=== PATIENT | male | born 1975 | race Caucasian/White ===

== ENCOUNTER 2023-09-25 15:05 | Emergency (ER) | payer MEDICAID, MEDICARE ==
[~2023-09-25] VITALS: Ht 170.2 cm; Wt 98.5 kg
[~2023-09-25 15:05] MED LIST: FLO0.4C PO; LORA1TAB PO; NORCO10T PO; ONDA4TAB6 PO; PANT-47 PO; PROM25TA14 PO; TEG100T PO; ZIPR80CA2 PO
[2023-09-25] MEDS ORDERED: DOXY-457 PO (16:35)
[2023-09-25 16:58] VITALS: BP 143/95; PULSE 79; RESP 16; TEMP 98.2; O2SAT 97
== END 2023-09-25 16:59 | disposition home or self-care (01) ==
LOC: ER 15:05
DX: K11.8 Other diseases of salivary glands (principal); I10 Essential (primary) hypertension; J45.909 Unspecified asthma, uncomplicated; F31.9 Bipolar disorder, unspecified; F12.90 Cannabis use, unspecified, uncomplicated; F15.90 Other stimulant use, unspecified, uncomplicated; Z88.5 Allergy status to narcotic agent; Z79.899 Other long term (current) drug therapy; Z79.2 Long term (current) use of antibiotics
CPT/HCPCS: 99283

== ENCOUNTER 2023-10-08 14:35 | Emergency (ER) | payer OTHER, MEDICAID ==
[~2023-10-08] VITALS: Ht 172.7 cm; Wt 99.0 kg
[2023-10-08 14:51] VITALS: BP 157/88; PULSE 76; TEMP 97.8; O2SAT 97
[2023-10-08] MEDS ORDERED: ketorolac trometh inj. 60 MG/2 ML VIAL IM ONE (16:45)
[2023-10-08] MEDS ORDERED: METH-798 PO (16:58)
[2023-10-08] MEDS ORDERED: IBUP-1985 PO (16:58)
[2023-10-08 17:15] VITALS: RESP 17
[2023-10-08] MEDS: ketorolac tromethamine 15mg/ml inj. IM ONE (17:15)
== END 2023-10-08 17:29 | disposition home or self-care (01) ==
LOC: ER 14:36
DX: M54.59 Other low back pain (principal); V98.8XXA Other specified transport accidents, initial encounter; Y93.89 Activity, other specified; Y92.89 Other specified places as the place of occurrence of the external cause; Y99.8 Other external cause status
CPT/HCPCS: 72100; 96372; 99283; J1885

== ENCOUNTER 2023-11-28 17:46 | Emergency (ER) | payer MEDICAID ==
[~2023-11-28] VITALS: Ht 177.8 cm; Wt 85.4 kg
[~2023-11-28 17:46] MED LIST changes: +IBUP-1985 PO; +METH-798 PO
[2023-11-28 17:47] VITALS: BP 163/100; PULSE 79; O2SAT 97
[2023-11-28] MEDS ORDERED: MELO-100 PO (18:32)
[2023-11-28 18:45] VITALS: RESP 17; TEMP 98.5
== END 2023-11-28 18:47 | disposition home or self-care (01) ==
LOC: ER 17:47
DX: S93.401A Sprain of unspecified ligament of right ankle, initial encounter (principal); I10 Essential (primary) hypertension; J45.909 Unspecified asthma, uncomplicated; F12.90 Cannabis use, unspecified, uncomplicated; F15.90 Other stimulant use, unspecified, uncomplicated; Z88.5 Allergy status to narcotic agent; Z79.899 Other long term (current) drug therapy; X50.1XXA Overexertion from prolonged static or awkward postures, initial encounter; Y93.89 Activity, other specified; Y92.89 Other specified places as the place of occurrence of the external cause; Y99.8 Other external cause status
CPT/HCPCS: 73610; 73630; 99284; L4360

== ENCOUNTER 2024-03-18 08:35 | Outpatient (CLI) | payer OTHER ==
[~2024-03-18 08:35] MED LIST changes: +MELO-100 PO
== END 2024-03-18 23:59 | disposition home or self-care (01) ==
LOC: MRI 08:35
PROVIDERS: ATTEND Student in an Organized Health Care Education/Training Program
DX: S93.401A Sprain of unspecified ligament of right ankle, initial encounter (principal); S96.911A Strain of unspecified muscle and tendon at ankle and foot level, right foot, initial encounter; X58.XXXA Exposure to other specified factors, initial encounter; Y93.89 Activity, other specified; Y92.89 Other specified places as the place of occurrence of the external cause; Y99.8 Other external cause status
CPT/HCPCS: 73721